=== PATIENT | female | born 1995 | race Caucasian/White ===

== ENCOUNTER 2018-08-24 23:06 | Emergency (ER) | payer MEDICAID ==
[2018-08-24] MEDS ORDERED: Albuterol/Ipratropium Neb 3 ML AERS HHN ONE (23:53)
--- NOTE | 2018-08-24 23:59 | ED Physician Chart ---
ED Chief Complaint/HPI - Patient Information Date Seen:: 08/24/18 Time Seen:: 23:45 Chief Complaint:: chest pain History of Present Illness:: At 0500 this morning patient developed pleuritic chest pain: under left breast, left superior chest and right superior chest. Pain increased with slight exertion. Patient had a cough last week but not for the last 4-5 days. No recent calf or thigh pain or swelling. Patient has had an IUD since about 2012. She is not on control pills. Allergies:: Allergies Allergy/AdvReac Type Severity Reaction Status Date / Time No Known Allergies Allergy Verified 08/24/18 23:44 Vitals:: Vital Signs - 8 hr 08/24/18 23:45 Temp 98.6 F HR 83 RR 14 BP 124/77 O2 Sat % 97 Historian:: Patient Review:: Nurse's Note Reviewed ED Review of Systems - Review of Systems General/Constitutional: No fever, No chills Skin: No skin lesions Head: No headache Eyes: No loss of vision ENT: No earache Neck: No neck pain, No swelling Cardio Vascular: Chest pain Pulmonary: SOB, No wheezing GI: No nausea, No vomiting, No diarrhea Musculoskeletal: No bone or joint pain, No back pain, No muscle pain Psychiatric: No prior psych history Hematopoietic: No bruising Allergic/Immuno: No urticaria Neurological: No syncope ED Past Medical History - Past Medical History Past Medical History: No significant medical hx Family History: Diabetes Melitus Social History: Non Smoker, No Alcohol Surgical History: None Medication: Reviewed ( control pills) Family Medical History - Family Member Mother History Unknown: Yes ED Assessment - Assessment General Assessment: Patient states that her chest pain did not improve with a breathing treatment. Patient appears to have viral pleuritis. Pulmonary embolus (emboli) was considered but considered to be very unlikely since the d-dimer is less than 100 , patient is not on control pills, she has no calf or thigh pain or swelling and she has no tachycardia on the EKG. Patient will be encouraged to drink extra .orange juice and eat extra bananas for the next few days for her hypo-kalemia. Suggested taking 2 [id number] ibuprofen 3-4 times a day for her pain. ED Septic Shock - . Is Septic Shock (SBP<90, OR Lactate>4 mmol\L) present?: No - <6hrs of presentation: Vital Signs: Vital Signs - 8 hr 08/24/18 23:45 Temp 98.6 F HR 83 RR 14 BP 124/77 O2 Sat % 97 ED Reassessment (Disposition) - Reassessment Reassessment Condition:: Improved - Diagnosis Diagnosis:: Viral pleuritis - Aftercare/Follow up Instructions Aftercare/Follow-Up Instructions:: Refer to Discharge Instructions - Patient Disposition Discharge/Transfer:: Home Condition at Disposition:: Stable, Unchanged
[2018-08-25] MEDS ORDERED: Albuterol/Ipratropium Neb 3 ML AERS HHN ONE (00:14)
[2018-08-25 00:17] LABS: URINE SOURCE CLEAN C
[2018-08-25 00:26] LABS: URINE BILIRUBIN NEGATIVE (NEGATIVE); URINE BLOOD TRACE (NEGATIVE); URINE GLUCOSE (UA) NEGATIVE (NEGATIVE); URINE KETONE TRACE mg/dL (NEGATIVE); URINE LEUKOCYTE ESTERASE NEGATIVE (NEGATIVE); URINE MICROSCOPIC INDICATED? YES; URINE NITRATE NEGATIVE (NEGATIVE); URINE PROTEIN NEGATIVE (NEGATIVE); URINE UROBILINOGEN 0.2 E.U./dL (0.2 - 1.0)
[2018-08-25 00:28] LABS: URINE CLARITY CLEAR (CLEAR); URINE COLOR YELLOW
[2018-08-25 00:35] LABS: URINE BACTERIA FEW /hpf (NONE SEEN); URINE EPITHELIAL CELLS FEW /lpf (FEW); URINE RBC 0-2 /hpf (0-5); URINE WBC 0-2 /hpf (0-5)
[2018-08-25 00:40] LABS: % BASOPHILS 0.9 % (0.0-2.0); % EOSINOPHILS 3.5 % (0.0-5.0); % LYMPHOCYTES 39.5 % (20.0-50.0); % MONOCYTES 7.6 % (2.0-10.0); % NEUTROPHILS 48.5 % (40.0-80.0); BASOPHILE ABSOLUTE 0.1 Th/cumm (0-0.2); EOSINOPHILE ABSOLUTE 0.3 Th/cmm (0.1-0.4); HEMATOCRIT 42.4 % (41.0-60); HEMOGLOBIN 14.2 gm/dL (12-16); MEAN CELL VOLUME 84.6 fl (81-100); MEAN CORPUSCULAR HEMOGLOBIN 28.4 pg (27.0-31.0); MEAN CORPUSCULAR HGB CONC 33.6 pg (28.0-36.0); MEAN PLATELET VOLUME 7.1 fl; MONOCYTE ABSOLUTE 0.8 Th/cmm (0.3-1.0); NEUTROPHILE ABSOLUTE 4.8 Th/cmm (1.8-8.0); PLATELET COUNT 301 Th/cmm (150-400); RED BLOOD COUNT 5.01 Mil/cmm (3.80-5.10); RED CELL DISTRIBUTION WIDTH 11.9 % (11.5-20.0)
[2018-08-25 00:56] LABS: ANION GAP 13.9 (7.0-16.0); BUN - UREA NITROGEN 21 mg/dL (7-25); CALCIUM SERUM 9.3 mg/dL (8.6-10.3); CARBON DIOXIDE 26.3 mEq/L (21.0-31.0); CHLORIDE 99 mEq/L (98-107); CREATININE - SERUM 0.6 mg/dL (0.6-1.2); GFR AFRICAN-AMERICAN > 60.0 ml/min (>90); GFR NON AFRICAN-AMERICAN > 60.0 ml/min; GLUCOSE 91 mg/dL (70-105); POTASSIUM SERUM 3.2 mEq/L (3.5-5.1); SODIUM SERUM 136 mEq/L (136-145)
[2018-08-25 01:03] LABS: DDIMER QUANT < 100 ng/mL (100-400)
[2018-08-25] MEDS ORDERED: Potassium Chloride 20 mEq ER Tab PO ONE ×2 (01:18→01:19)
== END 2018-08-25 01:45 | disposition home or self-care (01) ==
LOC: EDBD 23:06 → ER 23:06
DX: R09.1 Pleurisy (principal); R07.89 Other chest pain
CPT/HCPCS: 99284; 96372; 94640; 93005; 36415; 85379; 85025; 81001; 81025; 80048; J1885; Z7502